=== PATIENT | male | born 2000 | race Caucasian/White ===

== ENCOUNTER 2023-08-23 10:22 | Emergency (ER) | payer OTHER, SELFPAY ==
[2023-08-23 10:39] VITALS: BP 147/71; PULSE 67; RESP 18; TEMP 37; O2SAT 100
--- NOTE | 2023-08-23 11:16 | ED.GENADULT ---
HPI - General Adult General Chief complaint: Wound/Laceration Stated complaint: left side under arm swollen Source: patient Mode of arrival: ambulatory Limitations: no limitations History of Present Illness HPI narrative: Patient presents for evaluation of redness and swelling in left axillary region for last 5 days. No recent precipitating cause or injury. His outlined the area and redness migrated outside of the border. Over the last 24 hours it seems to be improving. No fever, chills, nausea, vomiting, drainage from the affected area. He is not diabetic. He does not smoke. Reports minimal pain in the affected area. Related Data Home Medications Medication Instructions Recorded Confirmed acetazolamide 500 mg mg PO 08/23/23 capsule,extended release Allergies Allergy/AdvReac Type Severity Reaction Status Date / Time No Known Allergies Allergy Verified 08/23/23 10:45 Review of Systems Review of Systems: CONSTITUTIONAL: Denies fever, chills, or sweats. EYES: Denies visual changes, redness, or discharge. ENT: Denies rhinorrhea, congestion, sore throat, or otalgia. CARDIOVASCULAR: Denies chest pain, palpitations, or edema. RESPIRATORY: Denies cough or dyspnea. GASTROINTESTINAL: Denies abdominal pain, nausea, vomiting, or diarrhea. GENITOURINARY: Denies dysuria or hematuria. SKIN: Reports swelling and redness to the left axillary region. MUSCULOSKELETAL: Denies back pain, joint pain, or myalgia. NEUROLOGIC: Denies headache, numbness, dizziness, or weakness. PSYCHIATRIC: Denies anxiety or depression. FOR[facility]LY [facility] Past Medical History Medical History No pertinent past medical history Surgical History Surgical History No pertinent past surgical history Family History Family History Mother Family history non-contributory Social History Social History Smoking status: Never smoker Alcohol intake: never Substance use: never Living arrangements: with family Gender identity (if verbalized by the patient): Male Sexual Orientation (if Verbalized by the Patient): Straight or Heterosexual Spiritual care concerns: No Exam Narrative: GENERAL: Well-appearing, well-nourished, and in no acute distress. HEAD: Normocephalic, atraumatic. EYES: PERRLA and EOMI. ENT: Nares clear, no rhinorrhea or epistaxis. Mucous membranes moist. Oropharynx without tonsillar hypertrophy exudate or other lesions. Bilateral TMs pearly agosto nonbulging NECK: Supple. No adenopathy or masses. No carotid bruits or JVD CHEST: Clear to auscultation. No respiratory distress. No wheezes rales or rhonchi HEART: Regular rate and rhythm. No murmur heard. Normal peripheral pulses. ABDOMEN: Soft, nontender, nondistended, normal active bowel sounds. EXTREMITIES: Normal range of motion. No edema. SKIN: There is a slightly raised area of erythema that is 3 x 3.5 cm incised the left axillary region with 13 x 8 cm area of surrounding erythema that is more flat in appearance. There is no underlying fluctuance. NEURO: No focal deficits. Alert and oriented x3. PSYCH: Normal mood and affect. Course Course Emergency Course: This is a 23-year-old male who presented for evaluation of an area of redness to the left axillary region. There is no fluctuance to suggest drainable fluid collection. Will discharge with Bactrim and Keflex. Increase hydration. Ibuprofen for pain and swelling. Follow-up with primary provider. Go to the ER for worsening symptoms. Patient in agreement with plan of care. Level of Care: Express Care Visit Vital Signs Vital signs: Vital Signs Temperature 37.0 C 08/23/23 10:39 Pulse Rate 67 08/23/23 10:39 Respiratory Rate 18 08/23/23 10:39 Blood Pressure 1
== END 2023-08-23 11:18 | disposition home or self-care (01) ==
PROVIDERS: Emergency Provider Nurse Practitioner; PCP Family Medicine
DX: L03.112 Cellulitis of left axilla (principal)
CPT/HCPCS: 99213; G0463